=== PATIENT | male | born 1980 | race Hispanic/Latino ===

== ENCOUNTER 2025-06-17 13:59 | Emergency (ER) | payer SELFPAY ==
--- NOTE | 2025-06-17 14:39 | RAD REPORT ---
EXAM: CT brain without contrast HISTORY: head injury, seizure COMPARISON: None TECHNIQUE: Multiple contiguous axial images were obtained and a CT of the brain without contrast. Sag ittal and coronal reformats were performed. One or more of the following dose reduction techniques were used: Automated exposure control, adjust ment of the mA and/or kV according to patient size, and/or iterative reconstruction. FINDINGS: No evidence of hydrocephalus, intracranial hemorrhage, or extra-axial fluid collection. The brain is normal in morphology. Gliosis is present in the right parietal lobe with evidence of pr evious craniotomy in the region. No evidence of midline shift or areas of brain edema. The visualized paranasal sinuses and mastoid air cells are essentially clear. IMPRESSION: No evidence of acute intracranial abnormality. Gliosis in the right parietal lobe with adjacent craniotomy changes.
--- NOTE | 2025-06-17 14:40 | RAD REPORT ---
EXAMINATION: CT MAXILLOFACIAL WITHOUT CONTRAST CLINICAL INDICATION: FACIAL PAIN TECHNIQUE: Axial images were obtained through the facial bones and orbits without intravenous contras t. Sagittal and coronal reconstructions were created from the data. One or more of the following dose reduction techniques were used: Automated exposure control, adjustment of the mA and/or kV accor ding to patient size, and/or iterative reconstruction. Unless otherwise specified, incidental findings do not require dedicated imaging follow-up. COMPARISON: No prior exam. FINDINGS: SOFT TISSUE: No significant abnormalities. BONES: Minimal deformity of the distal nasal bone likely representing nasal bone fracture. Suggest co rrelation with clinical point tenderness. ORBITS: The globes are intact. No intraorbital hemorrhage or mass. SINUSES: 2 cm mucous retention cysts or polyps in the right maxillary antrum and anterior left ethmoi d air cell. The paranasal sinuses and mastoids are clear. IMPRESSION: Minimal anterior nasal bone fracture.
--- NOTE | 2025-06-17 14:48 | EDPHYS ---
Physician Documentation [facility] Name: Girish Mccoy Age: 44 yrs Sex: Male : 1980 Arrival Date: 06/17/2025 Time: 13:59 Bed 9 Private MD: ED Physician Marcel Mock HPI: 06/17 14:12 This 44 yrs old Male presents to ER via Ambulatory with complaints of Seizure. rn 14:12 Patient had single seizure prior to arrival, was simple partial by his explanation and rn has never lost consciousness. Patient states had brain tumor removed and has had seizures since finding the brain tumor. Has been on multiple seizure medications and nothing seems to work for him. Most recently prescribed Dilantin but he believes that the Dilantin causes him to have seizures. He does not take the Dilantin because of this. He is here because he fell forward and hit face and thinks he broke his nose. He does not want seizure medication.. Historical: - Allergies: 14:10 No Known Allergies; dd2 - PMHx: 14:10 Seizure; BRAINTUMOR; dd2 - PSHx: 14:10 BRAIN SX FOR TUMOR; dd2 - Immunization history:: Adult Immunizations unknown. - Infectious Disease History:: Denies. - Social history:: Smoking status: Patient denies any tobacco usage or history of. - Family history:: not pertinent. - Hospitalizations: : No recent hospitalization is reported. ROS: 14:12 Constitutional: Negative for fever, chills, and weight loss, ENT: Positive for nose rn pain and swelling Neck: Negative for injury, pain, and swelling, Cardiovascular: Negative for chest pain, palpitations, and edema, Respiratory: Negative for shortness of breath, cough, wheezing, and pleuritic chest pain, Abdomen/GI: Negative for abdominal pain, nausea, vomiting, diarrhea, and constipation, Back: Negative for injury and pain, MS/Extremity: Negative for injury and deformity, Neuro: Positive for headache and seizure Exam: 14:12 Constitutional: This is a well developed, well nourished patient who is awake, alert, rn and in no acute distress. Head/Face: Small skin tear to forehead, no active bleeding. Moderate swelling of the nose without septal hematoma noted. No epistaxis Cardiovascular: Regular rate and rhythm. No pulse deficits. Respiratory: No increased work of breathing, no retractions or nasal flaring. MS/ Extremity: Pulses equal, no cyanosis. Neuro: Awake and alert, GCS 15 Vital Signs: 14:08 BP 151 / 106; Pulse 75; Resp 16; Temp 98.2; Pulse Ox 100% ; Weight 99.79 kg; Pain 9/10; dd2 14:08 Pain Scale: Adult dd2 [place] Coma Score: 14:10 Eye Response: spontaneous(4). Motor Response: obeys commands(6). Verbal Response: dd2 oriented(5). Total: 15. MDM: 14:04 Medical Screening Exam initiated rn 14:46 Differential diagnosis: seizure, Nasal fracture, facial fracture, intracranial injury. rn Data reviewed: vital signs, nurses notes, and as a result, I will discharge patient. Independent interpretation of the following test(s) in the Emergency Department CT Scan: My interpretation is CT head images negative for acute hemorrhage per my interpretation. Care significantly affected by the following chronic conditions: Epilepsy. Counseling: I had a detailed discussion with the patient and/or guardian regarding the historical points, exam findings, and any diagnostic results supporting the discharge/admit diagnosis, radiology results, the need for outpatient follow up, to return to the emergency department if symptoms worsen or persist or if there are any questions or concerns that arise at home. Special discussion: I discussed with the patient/guardian in detail that at this point there is no indication for admission to the hospital. It is understood, however, that if the symptoms persist or worsen the patient needs to return immediately for re-evaluation. Based on the history and exam findings, there is no indication for further emergent testing or inpatient evaluation. I discussed with the patient/guardian the need to see the ENT specialist for further evaluation of the symptoms. I discussed with the patient/guardian the need to see the primary care provider for further evaluation of the symptoms. ED course: Small nondisplaced nasal fracture noted. CT head negative. Patient does not want seizure medication. Will discharge home with ENT follow-up as needed but will likely heal just fine.. 06/17 14:10 Order name: CT Head Brain wo Cont; Complete Time: 14:42 rn 06/17 14:10 Order name: CT Facial Bones W/O Con; Complete Time: 14:42 rn 06/17 14:42 Order name: Wound Care; Complete Time: 15:18 rn 06/17 14:42 Order name: Wound dressing: steri-strips; Complete Time: 15:18 rn Administered Medications: No medications were administered Disposition Summary: 06/17/25 14:48 Discharge Ordered Notes: Location: Home rn Problem: new rn Symptoms: have improved rn Condition: Stable rn Diagnosis - Epileptic seizures related to external causes, not intractable, without status rn epilepticus - Unspecified injury of head, initial encounter rn Followup: rn - With: Private Physician - When: As needed - Reason: Recheck today's complaints, Re-evaluation by your physician Discharge Instructions: - Discharge Summary Sheet rn - Head Injury, Adult rn - Seizure, Adult rn Forms: - Medication Reconciliation Form rn - 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
--- NOTE | 2025-06-17 14:48 | ER ---
Nurse's Notes [facility] Name: Girish Mccoy Age: 44 yrs Sex: Male : 1980 Arrival Date: 06/17/2025 Time: 13:59 Bed 9 Private MD: Diagnosis: Epileptic seizures related to external causes, not intractable, without status epilepticus;Unspecified injury of head, initial encounter Presentation: 06/17 14:08 Chief complaint: Patient states: SEIZURE APPROX 10 MINS AGO. PT REPORTS HE HASN'T HAD dd2 ONE FOR 4-5 DAYS. ALSO REPORTS HE TOOK HIMSELF OFF OF THE DILANTIN AND DOES NOT LIKE THE WAY IT FEELS. HX BRAIN TUMOR. Coronavirus screen: At this time, the client does not indicate any symptoms associated with coronavirus-19. Ebola Screen: No symptoms or risks identified at this time. Initial Sepsis Screen: Does the patient meet any 2 criteria? No. Patient's initial sepsis screen is negative. Does the patient have a suspected source of infection? No. Patient's initial sepsis screen is negative. Risk Assessment: Do you want to hurt yourself or someone else? Patient reports no desire to harm self or others. Onset of symptoms was June 17, 2025. 14:08 Method Of Arrival: Ambulatory dd2 14:08 Acuity: LYDIA 3 dd2 Triage Assessment: 14:10 General: Appears in no apparent distress. uncomfortable, Behavior is calm, cooperative, dd2 appropriate for age. Pain: Complains of pain in forehead and nose. Neuro: Level of Consciousness is awake, alert, obeys commands, Oriented to person, place, time, situation, Appropriate for age Seizure activity reported prior to arrival. Derm: Wound noted forehead and nose. Historical: - Allergies: 14:10 No Known Allergies; dd2 - PMHx: 14:10 Seizure; BRAINTUMOR; dd2 - PSHx: 14:10 BRAIN SX FOR TUMOR; dd2 - Immunization history:: Adult Immunizations unknown. - Infectious Disease History:: Denies. - Social history:: Smoking status: Patient denies any tobacco usage or history of. - Family history:: not pertinent. - Hospitalizations: : No recent hospitalization is reported. Screenin:19 [facility] ED Fall Risk Assessment (Adult) History of falling in the last 3 months, jb4 including since admission No falls in past 3 months (0 pts) Confusion or Disorientation No (0 pts) Intoxicated or Sedated No (0 pts) Impaired Gait No (0 pts) Mobility Assist Device Used No (0 pt) Altered Elimination No (0 pt) Score/Fall Risk Level 0 - 2 = Low Risk Oriented to surroundings, Maintained a safe environment. Abuse screen: Denies injuries from another. Nutritional screening: No deficits noted. Tuberculosis screening: No symptoms or risk factors identified. Assessment: 14:33 Reassessment: Patient and/or family updated on plan of care and expected duration. Pain ll1 level reassessed. 15:19 Reassessment: Patient appears in no apparent distress at this time. Patient and/or jb4 family updated on plan of care and expected duration. Pain level reassessed. Patient is alert, oriented x 3, equal unlabored respirations, skin warm/dry/pink. Vital Signs: 14:08 BP 151 / 106; Pulse 75; Resp 16; Temp 98.2; Pulse Ox 100% ; Weight 99.79 kg; Pain 9/10; dd2 14:08 Pain Scale: Adult dd2 [place] Coma Score: 14:10 Eye Response: spontaneous(4). Motor Response: obeys commands(6). Verbal Response: dd2 oriented(5). Total: 15. ED Course: 14:01 Patient arrived in ED. im 14:04 Marcel Mock MD is Attending Physician. rn 14:10 Triage completed. dd2 14:10 Arm band placed on right wrist. dd2 14:28 CT Head Brain wo Cont In Process Unspecified. EDMS 14:29 CT Facial Bones W/O Con In Process Unspecified. EDMS 14:33 Elena Irving, RN is Primary Nurse. ll1 14:33 Patient placed in an exam room, on a stretcher. ll1 14:33 Provided Education on: ER procedures and process. Warm blanket given. ll1 15:19 Patient has correct armband on for positive identification. Bed in low position. Call jb4 light in reach. Side rails up X 1. 15:19 No provider procedures requiring assistance completed. Patient did not have IV access jb4 during this emergency room visit. Administered Medications: No medications were administered Medication: 15:19 VIS not applicable for this client. jb4 Outcome: 14:48 Discharge ordered by . rn 15:19 Discharged to home ambulatory, with family, deja 15:19 Condition: stable 15:19 Discharge instructions given to patient, Instructed on discharge instructions, follow up and referral plans. medication usage, Demonstrated understanding of instructions, follow-up care, medications, Prescriptions given X 1, 15:22 Patient left the ED. [email or web address] Signatures: Dispatcher [employer] EDMS Marcel Mock MD MD rn Bryson, James, RN RN jb4 Elena Irving RN RN ll1 Shanel Bradley DIANA RN RN dd2
[2025-06-17 21:34] VITALS: BP 151/106; TEMP 98.2; O2SAT 100
== END 2025-06-17 15:22 | disposition home or self-care (01) ==
LOC: ER 13:59
DX: G40.509 Epileptic seizures related to external causes, not intractable, without status epilepticus (principal); S09.90XA Unspecified injury of head, initial encounter
CPT/HCPCS: 70450; 70486; 76377; 99283